=== PATIENT | female | born 1950 | race Caucasian/White ===

== ENCOUNTER 2016-11-06 16:48 | Emergency (ER) | payer BC, MEDICARE ==
[2016-11-06 16:55] VITALS: RESP 18
--- NOTE | 2016-11-06 17:20 | ED ---
Abdominal Pain HPI - General Chief Complaint: Abdominal Pain Stated Complaint: Rectal Problem Time Seen by Provider: 11/06/16 17:00 Source: patient, RN notes reviewed, old records reviewed Mode of arrival: ambulatory Limitations: no limitations - History of Present Illness Initial Comments: This is a 65-year-old female presenting to the emergency department with chief complaint of unable to have a bowel movement for the past week. Patient reports that she had a colonoscopy last Tuesday and everything well. She reports that after doing the prep she felt very dehydrated. She states that every time she has anesthesia and has to do a colonoscopy for the following week after she comes very constipated. Patient reports this is always resolved with enema. Patient states that she's had no blood per rectum. She reports that obtaining a colonoscopy they only found one polyp was removed. Patient denies any fever or chills. She is also concerned that she has some urinary tract infection. Patient reports that her urine is cloudy and she feels some irritation whenever she urinates. Patient denies any nausea or vomiting. Denies any blood in her stools. She states that she had a colonoscopy completed at [facility]. - Related Data Home Medications Medication Instructions Recorded Confirmed Fluticasone Nasal [place] [Flonase 2 spr EA NOSTRIL HS 11/06/16 11/06/16 Nasal [place]] Lansoprazole 15 mg PO DAILY 11/06/16 11/06/16 Ranitidine HCl [Zantac] 150 mg PO BID 11/06/16 11/06/16 Zolpidem [Ambien] 10 mg PO HS 11/06/16 11/06/16 Previous Rx's Medication Instructions Recorded Nitrofurantoin Monohyd/M-Cryst 100 mg PO Q12HR #14 cap 11/06/16 [Macrobid] Phenazopyridine [Pyridium] 100 mg PO TID #6 tablet 11/06/16 Allergies Allergy/AdvReac Type Severity Reaction Status Date / Time cefixime [From Suprax] Allergy Rash/Hives Verified 11/06/16 17:15 latex Allergy Rash/Hives Verified 11/06/16 17:15 hydrocodone [From Vass] AdvReac Severe Nausea & Verified 11/06/16 17:15 Vomiting diphenhydramine AdvReac Paradoxical Verified 11/06/16 17:15 [From Benadryl] Effect Review of Systems ROS Statement: Those systems with pertinent positive or pertinent negative responses have been documented in the HPI. ROS Other: All systems not noted in ROS Statement are negative. 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 pt had annette in her right lung for spontaneous pneumo, sinus x4 Past Psychological History: No Psychological Hx Reported Smoking Status: Never smoker Past Alcohol Use History: Occasional Past Drug Use History: None Reported General Exam - General Exam Comments Initial Comments: Well-appearing 65-year-old female. Patient is on appear to be in any acute distress. Limitations: no limitations General appearance: alert, in no apparent distress Head exam: Present: atraumatic, normocephalic, normal inspection Eye exam: Present: normal appearance, PERRL, EOMI. Absent: scleral icterus, conjunctival injection, periorbital swelling ENT exam: Present: normal exam, mucous membranes moist Neck exam: Present: normal inspection. Absent: tenderness, meningismus, lymphadenopathy Respiratory exam: Present: normal lung sounds bilaterally. Absent: respiratory distress, wheezes, rales, rhonchi, stridor Cardiovascular Exam: Present: regular rate, normal rhythm, normal heart sounds. Absent: systolic murmur, diastolic murmur, rubs, gallop, clicks GI/Abdominal exam: Present: soft, normal bowel sounds. Absent: distended, tenderness, guarding, rebound, rigid Extremities exam: Present: normal inspection, full ROM, normal capillary refill. Absent: tenderness, pedal edema, joint swelling, calf tenderness Back exam: Present: normal inspection Neurological exam: Present: alert, oriented X3, CN II-XII intact Psychiatric exam: Present: normal affect, normal mood Skin exam: Present: warm, dry, intact, normal color. Absent: rash Course Vital Signs 11/06/16 16:50 Temperature 98.4 F Pulse Rate 74 Respiratory 18 Rate Blood Pressure 129/64 O2 Sat by Pulse 99 Oximetry - Reevaluation(s) Reevaluation #1: 11/06/16 17:29 Patient is this time. She is resting comfortably in the bed. Abdominal x-ray does show significant amount of colonic stool. Patient will receive a milk and molasses enema. Reevaluation #2: 11/06/16 18:06 Patient is reevaluated after her enema and had a a very large bowel movement. Patient reports that she feels much better at this time. Patient states that she is ready to go home. Medical Decision Making - Medical Decision Making This is a 65-year-old female presents weren't sure what she plans patient after colonoscopy one week ago. She reports that she had a heavy prep and was dehydrated afterward. Patient reports this does happen frequently after she's had anesthesia in her colonoscopy. Patient reports is usually resolved with enema. She is also concerned that she may have urinary tract infection. Urinalysis was obtained KUB is obtained. KUB does show significant amount of colonic stool. Patient will receive a milk and molasses enema. Urinalysis did show significant white blood cells leukocyte esterase. Culture will be obtained. Patient will be started on Macrobid for urinary tract infection. - Lab Data Lab Results 11/06/16 Range/Units 16:50 Urine Color Light Yellow Urine Appearance Cloudy H (Clear) Urine pH 7.5 (5.0-8.0) Ur Specific [place] 1.005 (1.001-1.035) Urine Protein Negative (Negative) Urine Glucose (UA) Negative (Negative) Urine Ketones Negative (Negative) Urine Blood Small H (Negative) Urine Nitrite Negative (Negative) Urine Bilirubin Negative (Negative) Urine Urobilinogen <2.0 (<2.0) mg/dL Ur Leukocyte Esterase Large H (Negative) Urine RBC 1 (0-5) /hpf Urine WBC >182 H (0-5) /hpf Urine Bacteria Rare H (None) /hpf - Radiology Data Radiology results: report reviewed Monitor shows no acute change from previous exam. No evidence of free air in the abdomen. Disposition Clinical Impression: Constipation, UTI (urinary tract infection) Disposition: HOME SELF-CARE Condition: Good Instructions: Constipation (ED), Urinary Tract Infection in Women (ED) Additional Instructions: Patient advised to rest, remain hydrated. Increase her fiber in your diet. Follow-up with your primary care physician if symptoms of dysuria continue to persist. Completely entire antibiotic. Follow-up within the next 2 or 3 days with her primary care physician. Prescriptions: Nitrofurantoin Monohyd/M-Cryst [Macrobid] 100 mg PO Q12HR #14 cap Phenazopyridine [Pyridium] 100 mg PO TID #6 tablet Referrals: Galilea Tafoya MD [Primary Care Provider] - 1-2 days Time of Disposition: 17:30
[2016-11-06 17:27] LABS: Appearance,Urine Cloudy (Clear); Bacteria,Urine Rare /hpf; Bilirubin,Urine Negative (Negative); Glucose,Urine (UA) Negative (Negative); Ketones,Urine Negative (Negative); Leukocyte Esterase,Urine Large (Negative); Nitrite,Urine Negative (Negative); PH, Urine 7.5 (5.0-8.0); Particle Count 32532; Protein,Urine Negative (Negative); RBC,Urine 1 /hpf (0-5); Specific Gravity,Urine 1.005 (1.001-1.035); UA Billing (MACRO vs. MICRO) MICRO; Urobilinogen,Urine <2.0 mg/dL (<2.0); WBC,Urine >182 /hpf (0-5)
--- NOTE | 2016-11-06 17:30 | XR ---
EXAMINATION TYPE: XR KUB DATE OF EXAM: 11/06/2016 5:19 PM COMPARISON: 05/08/2010 HISTORY: Constipation TECHNIQUE: 2 views FINDINGS: Bowel gas pattern is normal. There is no sign of intestinal obstruction or pneumoperitoneum . Fecal pattern is normal. Lung bases are clear. There is no sign of a mass. IMPRESSION: Nonacute abdomen. No adverse change compared to old exam.
[2016-11-06 18:17] VITALS: BP 138/71; PULSE 84; TEMP 97.9
== END 2016-11-06 18:16 | disposition home or self-care (01) ==
LOC: EC 16:48
DX: K59.00 Constipation, unspecified (principal); N39.0 Urinary tract infection, site not specified; Z79.899 Other long term (current) drug therapy; Z88.1 Allergy status to other antibiotic agents; Z88.5 Allergy status to narcotic agent; Z91.040 Latex allergy status; Z88.8 Allergy status to other drugs, medicaments and biological substances
CPT/HCPCS: 74000; 81001; 87077; 87086; 87186; 99284

== ENCOUNTER → 2021-12-11 | Outpatient (CLI) | payer MEDICARE ==
[~2021-12-11] MED LIST: BEBTELOVIMAB (EUA) 175 MG/2 ML VIAL IV NR; SODIUM CHLORIDE 0.9% 500 ML 500 ML in EMPTY BAG 1 BAG IV PRN
[2021-12-11 13:53] VITALS: TEMP 98
[2021-12-11 14:15] VITALS: BP 104/68; PULSE 73; RESP 16
== END ==
LOC: PROCWHC3 12:54
PROVIDERS: ATTEND Nurse Practitioner Acute Care
DX: U07.1 COVID-19 (principal); M35.00 Sjogren syndrome, unspecified; E66.9 Obesity, unspecified; Z16.12 Extended spectrum beta lactamase (ESBL) resistance; Z28.310 Unvaccinated for COVID-19; Z88.1 Allergy status to other antibiotic agents; Z91.040 Latex allergy status; Z88.5 Allergy status to narcotic agent; Z88.8 Allergy status to other drugs, medicaments and biological substances; Z68.31 Body mass index [BMI] 31.0-31.9, adult
CPT/HCPCS: Q0222; M0222

== ENCOUNTER → 2023-01-04 | Outpatient (CLI) | payer MEDICARE ==
--- NOTE | 2023-01-04 16:39 | US ---
EXAMINATION TYPE: US venous doppler duplex LE DATE OF EXAM: 01/04/2023 4:24 PM COMPARISON: NONE CLINICAL INDICATION: Female, 72 years old with history of R60.0 LOCALIZED EDEMA; Swelling and pain in bilateral calves and behind knees. No hx of DVT. SIDE PERFORMED: Bilateral TECHNIQUE: The lower extremity deep venous system is examined utilizing real time linear array sonog ezequiel with graded compression, doppler sonography and color-flow sonography. VESSELS IMAGED: Common Femoral Vein Deep Femoral Vein Greater Saphenous Vein * Femoral Vein Popliteal Vein Small Saphenous Vein * Proximal Calf Veins (* superficial vessels) Right Leg: No evidence for DVT Left Leg: No evidence for DVT IMPRESSION: Grayscale, color doppler, spectral doppler imaging performed of the deep veins of the lo wer extremities. There is normal flow, compressibility, vascular waveforms.
== END | disposition home or self-care (01) ==
LOC: RADUSWWP 15:57
PROVIDERS: ATTEND Family Medicine
DX: R60.0 Localized edema (principal)
CPT/HCPCS: 93970

== ENCOUNTER → 2023-06-21 | Outpatient (CLI) | payer MEDICARE ==
--- NOTE | 2023-06-21 17:10 | XR ---
EXAMINATION TYPE: XR lumbar spine 2 or 3V DATE OF EXAM: 06/21/2023 4:53 PM CLINICAL INDICATION:Female, 72 years old with history of M54.50 Low back pain; [facility] COMPARISON: 07/04/2010 TECHNIQUE: XR lumbar spine 2 or 3V - Frontal, lateral and coned in L5-S1 lateral views of the spine. FINDINGS: No evidence of any acute osseous pathology. No evidence of loss of vertebral body height i s seen. There is normal alignment of the lumbar vertebral bodies. Mild scattered disc space narrowing . Multilevel marginal osteophyte formation throughout the visualized spine. There is facet joint arth ropathy throughout the spine. Scattered at least mild neural foraminal stenosis. Atherosclerosis of t he arterial vasculature. IMPRESSION: 1. No acute fracture. 2. Mild multilevel disc degeneration.
--- NOTE | 2023-06-21 17:11 | XR ---
EXAMINATION TYPE: XR thoracic spine 2V DATE OF EXAM: 06/21/2023 4:54 PM CLINICAL INDICATION:Female, 72 years old with history of M54.50 Low back pain; [facility] COMPARISON: 10/18/2011 TECHNIQUE: XR thoracic spine 2V views of the thoracic spine in Frontal and lateral projections. FINDINGS: No evidence of acute fracture. There is scattered multilevel disk space narrowing without loss of ve rtebral body height. There is normal alignment of the thoracic vertebral bodies. Scattered osteophyte formation along the anterior and lateral aspects of the vertebral bodies. Neural foramen are patent given limitations of this exam. Spinal canal appears patent. IMPRESSION: 1. No acute osseous pathology. 2. Mild degeneration changes throughout the spine.
== END | disposition home or self-care (01) ==
LOC: RADXRMAIN 15:36
PROVIDERS: ATTEND Nurse Practitioner Family
DX: M51.36 Other intervertebral disc degeneration, lumbar region (principal); M51.34 Other intervertebral disc degeneration, thoracic region
CPT/HCPCS: 72070; 72100